=== PATIENT | male | born 1965 | race African-American/Black ===

== ENCOUNTER 2025-07-07 06:24 | Day surgery (SDC) | payer OTHER, SELFPAY ==
[2025-07-07 07:21] LABS: Glucose - Point of Care 109 mg/dl (70-99)
== END 2025-07-07 09:30 | disposition home or self-care (01) ==
LOC: GI 06:24
PROVIDERS: ATTENDING PHYSICIAN Internal Medicine
DX: Z12.11 Encounter for screening for malignant neoplasm of colon (principal); R19.5 Other fecal abnormalities; K62.5 Hemorrhage of anus and rectum; K64.8 Other hemorrhoids; K57.30 Diverticulosis of large intestine without perforation or abscess without bleeding; D12.2 Benign neoplasm of ascending colon; D12.3 Benign neoplasm of transverse colon; K63.5 Polyp of colon
CPT/HCPCS: 45385; 82962; 88305